=== PATIENT | male | born 1955 | race Caucasian/White ===

== ENCOUNTER → 2020-05-21 04:30 | Outpatient (CLI) | payer MEDICARE, SELFPAY ==
[2020-05-21 19:03] LABS: SARS-CoV-2 RNA PCR Negative
== END ==
PROVIDERS: PCP Internal Medicine Gastroenterology; Visit Provider Internal Medicine Gastroenterology
DX: Z01.812 Encounter for preprocedural laboratory examination (principal); Z20.822 Contact with and (suspected) exposure to COVID-19
CPT/HCPCS: C9803; U0003; U0005

== ENCOUNTER 2020-05-24 02:08 | Day surgery (SDC) | payer MEDICARE, SELFPAY ==
[2020-05-09 11:41] VITALS: BMI 31.9
[2020-05-24 09:17] VITALS: BP 158/89; PULSE 63; RESP 16; TEMP 36.7; O2SAT 96
--- NOTE | 2020-05-24 09:34 | WPDANESEPPF ---
Anes - Initial Pre Proc Eval Procedure: Operation Date: 05/24/20 10:00 Proposed Procedures p Screening Colonoscopy - Shon Espino MD Date/Time: 05/24/20 09:34 Surgeon: Shon Espino MD Pre Op Diagnosis: family hx colon ca, hx of colon polyps Patient Data Age: 64 Gender: M Height: 5 ft 10 in Weight: 103 kg Last Vital Signs Temp 36.7 C 05/24/20 09:17 Pulse 63 05/24/20 09:17 Resp 16 05/24/20 09:17 BP 158/89 H 05/24/20 09:17 Pulse Ox 96 05/24/20 09:17 Allergies Allergy/AdvReac Type Severity Reaction Status Date / Time No Known Allergies Allergy Unverified 03/21/11 12:40 Home Medications Medication Instructions Recorded Confirmed Type alprazolam 1 mg PO DAILY 05/09/20 05/09/20 History aspirin [Aspir-81] 81 mg PO DAILY 05/09/20 05/09/20 History baclofen 10 mg PO BID 05/09/20 05/09/20 History gabapentin 300 mg PO DAILY 05/09/20 05/09/20 History hydroxyzine HCl 25 mg PO DAILY 05/09/20 05/09/20 History meloxicam 15 mg PO DAILY 05/09/20 05/09/20 History pltzwehjpjzn-qst-rqyp-FA-vit K 1 tablet PO DAILY 05/09/20 05/09/20 History [Adults Multivitamin] omega-3 fatty acids-vitamin E 1 cap PO DAILY 05/09/20 05/09/20 History [Fish Oil] omeprazole 40 mg PO DAILY 05/09/20 05/09/20 History Patient hx anesthesia problems: none Family hx anesthesia problems: none PMFSH Past Medical History Medical History Anxiety Chronic pain syndrome GERD (gastroesophageal reflux disease) Tobacco abuse Social History Social History Smoking packs per day: 1 Smoking cigarettes per day: 20.0 Years smoked: 55 Smoking pack-years: 55.00 Smoking status: Current every day smoker Tobacco type: cigarettes Alcohol intake: current Drinks per week: 6 Substance use type: does not use Living arrangements: with family Spiritual care concerns: No Anes - Eval Final PreProcedure Day of Procedure 05/24/20 09:34 Patient weight: obese Heart: regular rate and rhythm Lungs: decreased breath sounds Airway: Mallampati scale class II Neurological: alert and oriented Last oral intake: >/= 8 hours ASA classification: III Emergent: no Anesthetic plan: proceed Anesthesia type and monitoring: general GIVS and standard monitoring Informed Consent: The patient's anesthetic plan and its attendant risks and benefits were discussed with the patient/family/POA. Questions were solicited and answers provided to the satisfaction of the patient/family/POA.
[2020-05-24] MEDS: LACTATED RINGERS 1,000 ML 150 ML IV CONT (09:36)
--- NOTE | 2020-05-24 09:39 | PM.HPGS ---
History of Present Illness History of Present Illness Consent: Risks, benefits, and alternatives have been discussed and questions answered. Patient agrees to proceed with procedure. Chief complaint: family hx colon ca, hx of colon polyps Narrative: Rafael Brambila is a 64 year old male here for colon cancer screening. His sister had colon cancer Review of Systems Review of Systems: All systems reviewed & are unremarkable except as noted in HPI and below PMFSH Past Medical History Medical History Anxiety Chronic pain syndrome GERD (gastroesophageal reflux disease) Tobacco abuse Social History Social History Smoking packs per day: 1 Smoking cigarettes per day: 20.0 Years smoked: 55 Smoking pack-years: 55.00 Smoking status: Current every day smoker Tobacco type: cigarettes Alcohol intake: current Drinks per week: 6 Substance use type: does not use Living arrangements: with family Spiritual care concerns: No Meds Home Medications and Allergies Home Medications Medication Instructions Recorded Confirmed Type alprazolam 1 mg PO DAILY 05/09/20 05/09/20 History aspirin [Aspir-81] 81 mg PO DAILY 05/09/20 05/09/20 History baclofen 10 mg PO BID 05/09/20 05/09/20 History gabapentin 300 mg PO DAILY 05/09/20 05/09/20 History hydroxyzine HCl 25 mg PO DAILY 05/09/20 05/09/20 History meloxicam 15 mg PO DAILY 05/09/20 05/09/20 History wggyzhnlwykg-kzo-dsba-FA-vit K 1 tablet PO DAILY 05/09/20 05/09/20 History [Adults Multivitamin] omega-3 fatty acids-vitamin E 1 cap PO DAILY 05/09/20 05/09/20 History [Fish Oil] omeprazole 40 mg PO DAILY 05/09/20 05/09/20 History Allergies Allergy/AdvReac Type Severity Reaction Status Date / Time No Known Allergies Allergy Unverified 03/21/11 12:40 Vital Signs Vital Signs - 24 hr 05/24/20 09:17 Temperature 36.7 C Pulse Rate 63 Respiratory Rate 16 Blood Pressure 158/89 H Pulse Oximetry 96 Exam Resp: Auscultation: clear to auscultation bilaterally Cardio: Rate: regular rate Rhythm: regular rhythm GI: GI Palp: Yes Soft to palpation and No Tenderness to palpation present (GI) Assessment and Plan Assessment and plan (1) Colon cancer screening: Code(s): Z12.11 - Encounter for screening for malignant neoplasm of colon Status: Acute Assessment and Plan: Colonoscopy with possible biopsy or polypectomy or cautery or injection of substances.
[2020-05-24 10:14] VITALS: BP 119/76; PULSE 61; RESP 21; O2SAT 96
[2020-05-24 10:24] VITALS: BP 115/74; PULSE 60; RESP 18; O2SAT 96
[2020-05-24 10:34] VITALS: BP 128/85; PULSE 62; RESP 16; O2SAT 96
== END 2020-05-24 10:58 | disposition home or self-care (01) ==
PROVIDERS: PCP Emergency Medicine; Visit Provider Internal Medicine Gastroenterology
PROC: 0DJD8ZZ Inspection of Lower Intestinal Tract, Via Natural or Artificial Opening Endoscopic (ICD-10-PCS; CPT 45378; principal; 2020-05-24 10:00)
DX: Z12.11 Encounter for screening for malignant neoplasm of colon (principal); D12.8 Benign neoplasm of rectum; D12.2 Benign neoplasm of ascending colon; Z98.0 Intestinal bypass and anastomosis status; Z80.0 Family history of malignant neoplasm of digestive organs; Z79.82 Long term (current) use of aspirin; F41.9 Anxiety disorder, unspecified; K21.9 Gastro-esophageal reflux disease without esophagitis; E66.9 Obesity, unspecified; Z68.32 Body mass index [BMI] 32.0-32.9, adult; F17.210 Nicotine dependence, cigarettes, uncomplicated
CPT/HCPCS: 45385; 45381; 88305; C9803; J2704; J7120; U0003; U0005

== ENCOUNTER 2024-03-29 14:31 | Outpatient (CLI) | payer MEDICARE, SELFPAY ==
--- NOTE | ~2024-03-29 | MR_ITS ---
EXAMINATION: MR abdomen wo/w con DATE: 03/29/2024 15:49 INDICATION: Neoplasm of right kidney. TECHNIQUE: Magnetic resonance imaging (MRI) of the abdomen was performed without and with 19 mL Multi Treasure intravenous contrast. COMPARISON: None. FINDINGS: The liver, gallbladder, spleen, pancreas, and adrenal glands are normal. There are cysts and hemorrha gic cysts in the kidneys measuring up to 3.6 cm on the left. There are no dilated loops of bowel. The re are no pathologically enlarged lymph nodes. There is no free intraperitoneal fluid. IMPRESSION: 1. Benign cysts in the kidneys. Reviewed, dictated and finalized at location A. EYBALL COMMENTATOR
--- OUTSIDE RECORDS SUMMARY | 2024-03-29 14:37 | XMS_ITS | Encounter Summary ---
Author Organization [facility] Address [address] [place] [address] Care Team Providers Care Chemistry Associate Name Role Phone Alvaro Moon MD Primary Care Provider [phone] Encounter Details Date Type Department Care Team (Late st Contact Info) Description 07/28/2022 [facility] Message Enc [facility] ield [address] [place] [phone] Mychart, [facility] Provider lab results Social History Tobacco Use Types Packs/Day Years Used Date Smoking Tobacco: Former Cigarettes 1 55.4 0 05/09/1966 - 09/15/2021 Smokeless Tobacco: Never Alcohol Use Standard Drinks/Week Comments Yes 16.7 (1 standard drink = 0.6 oz pure alcohol) PHQ-2 Answer Date Recorded PHQ-2 Score - If the patient scores above 3, please move on to questions 3-9 0 07/08/2021 Education Answer Date Recorded What is the highest level of school you have completed or the highest degree you have received? 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 No / Unsure 07/03/2022 11:39 AM CDT documented as of this encounter Plan of Treatment Upcoming Encounters Date Type Department Care Team (Late st Contact Info) Description 04/18/2024 1:15 PM PASTE PLANT SUPERVISOR Appointment [facility] [address] [facility] [place] [address] Rj Esposito MD 3 [facility] [address] [place] [address] 05/10/2024 1:00 PM CDT Office Visit [facility] - [address] [place] [address] Rj Esposito MD 3 [facility] [address] [place] [address] documented as of this encounter Visit Diagnoses Not on filedocumented in this encounter Additional Health Concerns Assessment Noted Time PHQ-9 Depression Total Score: 0 05/10/19 11:25 AM CDT documented as of this encounter Care Teams Chemistry Associate Relationship Specialty Start Date End Date Alvaro Moon MD [address] [place] [id number] PCP - General FAMILY PRACTICE 05/06/21 documented as of this encounter
--- OUTSIDE RECORDS SUMMARY | 2024-03-29 14:37 | XMS_ITS | Data Portability ---
Author Organization [facility], [address] [facility] Address [address] [place] [address] Care Team Providers Care Timber Robber Name Role Phone LALITA DANIEL Primary Care Provider [phone] Assessment Encounter Date Assessment Date Assessment LastModified by Organization Details LastModified Time 07/05/2023 07/05/2023 The patient doiиван g very well after his right shoulder reverse arthroplasty. He can use the right arm and shoulder as tolerated. He will be seen 1 year after his surgical procedure on the right shoulder and have right shoulder radiographs at that visit. Risks, benefits and possible complication of corticosteroid injection were discussed. The skin over the left thumb carpometacarpal joint area and radial aspect of the left wrist was cleaned with alcohol and Betadine and the left thumb carpometacarpal joint was injected with 3 mg of betamethasone and 1/2 cc of bupivacaine and the left wrist STT joint was injected with 6 mg of betamethasone and 1 cc of bupivacaine. The patient tolerated the injections well. mgreatting Not available 07/09/2023 04:59:08 Plan of Treatment Reminders Order Date Submit Date Provider Last Modified By Organization Details Last Modified Time Details Appointments Establis [facility] Patient 15.EST 2024 01:00P M Dr. dIris Parker Not available Not available Not available Lab None recorded . Referral None recorded . Procedures None recorded . Surgeries None recorded . Imaging None recorded . Medication Orders None recorded . Patient TargetsNo targets recorded. Patient InstructionsNo instructions recorded. Reason for Referral None Reported. Results Created Date Observation Date Name Description Value Unit Range Abnormal Flag Note LastModifiedBy Organization Detail LastModifiedTime 09/30/19 24 06/08/2022 imagi ng/di agnos tic resul t No observ ation record ed. Not Available 09/30/2023 05:19:22 09/30/1906/15/2022 imagi ng/di agnos tic resul t No observ ation record ed. Not Available 09/30/2023 05:19:24 12/13/1903/22/2023 imagi ng/di agnos tic resul t No observ ation record ed. [email or web address] Not Available 22:59:48 Result Notes None recorded. 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 4 04:59:32 Osteoarthri tis of joint of left wrist 6465397089784 06 Active 2023 Idris Parker MD [address] , [place], [address], [facility] 4 04:59:43 Problem Notes None recorded. Procedures Surgical History Date Name Laterality Status Provider Name and Address Organization Details Recorded Time Colonoscopy with biopsy completed Not Available Health Note 06/28/2023 14:16:11 Total hip arthroplasty completed Not Available Health Note 06/28/2023 14:16:11 Total knee arthroplasty completed Not Available Health Note 06/28/2023 14:16:11 Imaging Results Imaging Date Name Status [facility]Modified [facility] Details LastModified Time 06/08/2022 imaging/diag nostic result completed Information not available 09/30/2023 05:19:22 06/15/2022 imaging/diag nostic result completed Information not available 09/30/2023 05:19:24 03/22/2023 imaging/diag nostic result completed [email or web address] Information not available 12/13/2023 22:59:48 Procedure Notes None recorded. Medical Equipment None Reported. Allergies Allergen ID Allergen Name Allergen Category Reaction Reaction Severity Criticality Documentation Date Start Date Code Code System Note Provider Name and Address Organization Details Recorded Time 0386631 honey bee venom medicatio n hives itching swelling Not available Not available Not available Not available 06/28/2023 27471 7 RxNorm Not Available Not Available Not Available 1224381 tramadol hydrochlo ride medicatio n headache Not available Not available 11/24/20232022 41683 RxNorm React ion: Heada guru; Not Available Not Available Not Available Medications Name Sig Start Date Stop Date Status Note LastModified by Organization Details LastModified Time azithromycin 250 mg tablet TAKE 2 TABLETS BY MOUTH ON DAY 1, AND THEN TAKE 1 TABLET BY MOUTH ONCE A DAY ON DAY 2 THROUGH DAY 5 active Not Available Not Available No t Available alprazolam 1 mg tablet TAKE 1/2 TO 1 (ONE-HALF TO ONE) TABLET BY MOUTH EVERY 8 HOURS NEEDED FOR ANXIETY active Not Available Not Available No t Available hydrocodone 5 mg-acetaminop hen 325 mg tablet TAKE 1 TO 2 TABLETS BY MOUTH EVERY 6 HOURS NEEDED FOR PAIN active Not Available Not Available No t Available meloxicam 15 mg tablet TAKE 1 TABLET BY MOUTH ONCE DAILY active Not Available Not Available No t Available hydrocodone 10 mg-acetaminop hen 325 mg tablet TAKE 1 TO 2 TABLETS BY MOUTH EVERY 6 HOURS NEEDED FOR PAIN active Not Available Not Available No t Available omeprazole 40 mg capsule,delay ed release TAKE 1 CAPSULE BY MOUTH ONCE DAILY active Not Available Not Available No t Available tramadol 50 mg tablet TAKE 1 TO 2 TABLETS BY MOUTH EVERY 6 HOURS NEEDED FOR PAIN active Not Available Not Available No t Available carvedilol 3.125 mg tablet TAKE 1 TABLET BY MOUTH TWICE DAILY active Not Available Not Available No t Available dicyclomine 20 mg tablet TAKE 1 TABLET BY MOUTH 4 TIMES DAILY NEEDED FOR ABDOMINAL CRAMPING active Not Available Not Available No t Available baclofen 10 mg tablet TAKE 1 TABLET BY MOUTH TWICE DAILY active Not Available Not Available No t Available losartan 25 mg tablet TAKE 1 TABLET BY MOUTH ONCE DAILY active Not Available Not Available No t Available docusate sodium 100 mg capsule TAKE ONE CAPSULE BY MOUTH TWICE DAILY active Not Available Not Available No t Available rosuvastatin 20 mg tablet TAKE 1 TABLET BY MOUTH NIGHTLY AT BEDTIME active Not Available Not Available No t Available Vitals None Recorded Social History Question Answer Notes LastModified by Organizat ion Details LastModified Time Do You Have An Advance Directive? No [email or web address] Information not available 06/28/2023 What Is Your Level Of Alcohol Consumption? Occasional [email or web address] Information not available 06/28/2023 How Many Times Per Week Do You Consume Alcohol? 1-2 Times Per Week [email or web address] Information not available 06/28/2023 What Is Your Level Of Caffeine Consumption? None [email or web address] Information not available 06/28/2023 Are You Currently Employed? 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 3-4 Times Per Week [email or web address] Information not available 06/28/2023 How Many Packs Per Day (PPD)? 1/2 Pack Per Day [email or web address] Information not available 06/28/2023 How Long Have You Smoked? 50yrs [email or web address] Information not available 06/28/2023 Do You Have A Medical Power Of Geological Science Teacher? No [email or web address] Information not available 06/28/2023 What Was The Date Of Your Most Recent Tobacco Screening? 07/05/2023 [email or web address] Information not available 06/28/2023 What Is Your Relationship Status? [email or web address] Information not available 06/28/2023 Do You Use Any Illicit Or Recreational Drugs? No [email or web address] Information not available 06/28/2023 Sex: Unknown Functional Status Question Answer Note LastModified by Organization D etails LastModified Time What is your exercise level? Moderate [email or web address] Information not available 06/28/2023 Mental Status None recorded. Family History Relationship Description Onset Age of this Age Resolved Age Notes LastModified by Organization Details LastModified Time Mother Arthritis [email or web address] Not available 06/28/2023 14:16:09 Father Arthritis [email or web address] Not available 06/28/2023 14:16:09 Sister Arthritis [email or web address] Not available 06/28/2023 14:16:09 Brother Arthritis [email or web address] Not availabl e 06/28/2023 14:16:09 Maternal Grandfather Arthritis [email or web address] Not available 06/15 14:16:09 Paternal Grandfather Arthritis [email or web address] Not available 06/15 14:16:09 Maternal Grandmother Arthritis [email or web address] Not available 06/15 14:16:10 Paternal Grandmother Arthritis [email or web address] Not available 06/15 14:16:10 Medical History Condition Response Anxiety Disorder N Diabetes N Bleeding Disorder N Attention-deficit Hyperactivity Disorder N High Blood Pressure N Arthritis Y Hyperlipidemia N Cancer N Thyroid Problems N Stroke N Asthma N Depression N COPD N Seizures N Anemia N Heart Disease Y Fibromyalgia N Osteoporosis N Kidney Disease N Past Encounters Encounter ID Performer Location Encounter Start Date Encounter Closed Date Diagnosis/Indication Diagnosis SNOMED-CT Code Diagnosis ICD10 Code Diagnosis Note [id number] Idris Parker MD [facility] [address] [place] [address] 07/05/2023 13:06:52 07/13/2023 20:35:45 History of reverse prosthetic total arthroplasty of right shoulder 1640200637 6736305 Z96.611 Arthritis of first carpometacarpal joint of left hand 4341156749 247781 M13.842 Osteoarthr itis of joint of left wrist 6173523992 06145 M19.032 Health Concerns Section Related Observation LastModified by Organization Detai ls LastModified Time None Recorded Concern Status LastModified by Organization Details LastModified Time None Recorded Advance Directives Directive N: Payers Encounter Date Sequence Insurance Name Policy Number Policy Guerrero Covered Member ID Guerrero Member ID Guarantor Name 07/05/2023 1 [employer] (MEDICARE REPLACEMENT HMO) [id number] Rafael E Kosta [id number] Rafael Brambila Notes Date Note Type Note Provider Name and Address Organization Details Recorded Time 07/05/2023 text/html Rafael Brambilais a 67 year oldmalepresenting for care. Rafael returns for follow-up about 6 months after right shoulder reverse arthroplasty. He currently feels he is doing very with his shoulder replacement. He feels his range of motion and strength are good and his pain is markedly improved over his preoperative status. He is very pleased with the results. He is having pain in the left wrist STT joint and thumb CMC joint area and has received injections for those areas in the past and would like repeat injections today. He gets pain in the left wrist and base of the left thumb with lifting, gripping and grasping, pinching and pushing and pulling activities. Idris Parker MD [address] [facility], [place], [address], [facility] 07/09/2023 05:01:14
--- OUTSIDE RECORDS SUMMARY | 2024-03-29 14:37 | XMS_ITS | Encounter Summary ---
Author Organization [facility] Address [address] [place] [address] Care Team Providers Care Science Interpreter Name Role Phone Alvaro Moon MD Primary Care Provider [phone] Encounter Details Date Type Department Care Team (Late Contact Info) Description 10/23/2021 [facility] [address] Heath Monique [place] Social History Tobacco Use Types Packs/Day Years Used Date Smoking Tobacco: Some Days Cigarettes 1 57.9 Started: [birth year]/09/1967 Smokeless Tobacco: Never Alcohol Use Standard Drinks/Week [...] CDT Gender Identity Male 03/24/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 No / Unsure 10/22/2021 2:50 PM CDT documented as of this encounter Plan of Treatment Upcoming Encounters Date Type Department Care Team (Late st Contact Info) Description 04/18/2024 1:15 PM ELECTRONIC SCALE TESTER Appointment [facility] [address] [facility] [place] [address] Rj Esposito MD 3 [facility] [address] [place] [address] 05/10/2024 1:00 PM CDT Office Visit [facility] - [place] [address] [facility] [place] [address] Rj Esposito MD [address] [facility] [address] [place] [address] documented as of this encounter Procedures Procedure Name Priority Date/Time Associated Diagnosis Comments CBC (OUTSIDE LAB) Routine 01/29/2021 COMPREHENSIVE METABOLIC PANEL Routine 01/29/2021 LIPID PANEL Routine 01/29/2021 HEMOGLOBIN, GLYCOSYLATED Routine 01/29/2021 THYROID STIM HORMONE TSH Routine 01/29/2021 documented in this encounter Results * HEMOGLOBIN, GLYCOSYLATED (01/29/2021) HGB A1C 5.5 % 01/29/2021 [facility] Final Result * THYROID STIM HORMONE, TSH (01/29/2021) TSH 0.992 01/29/2021 us [facility] Final Result * LIPID PANEL (01/29/2021) CHOLESTEROL 181 HDL 58 TRIGLYCERIDES 135 LDL (CALCULATED) 96 01/29/2021 us [facility] Final Result * (ABNORMAL) COMPREHENSIVE METABOLIC PANEL (01/29/2021) SODIUM S/P/B 145 POTASSIUM S/P/B 4.2 CO2 28.4 CHLORIDE S/P/B 109 GLUCOSE 111 mg/dL CALCIUM S/P/B 8.9 BUN 16 CREATININE S/P/B 0.7 0.7 - 1.3 EGFR NON-AFR. AMER. >60 <=90 ALKALINE PHOSPHATASE S/P/B 109 ALT 27 AST 18 BILIRUBIN TOTAL S/P/B 0.5 ALBUMIN S/P/B 3.4(A) 3.5 - 5.0 TOTAL PROTEIN S/P/B 6.7 01/29/2021 [facility] Final Result * CBC (OUTSIDE LAB) (01/29/2021) WBC 6.2 HGB 14.5 HCT 43.9 PLT 126 01/29/2021 us [facility]-OUTSIDE/ABSTRACTED Edite d Result - Final documented in this encounter Visit Diagnoses Not on filedocumented in this encounter Additional Health Concerns Assessment Noted Time PHQ-9 Depression Total Score: 0 05/10/19 22 11:25 AM CDT documented as of this encounter Care Teams Science Interpreter Relationship Specialty Start Date End Date Alvaro Moon MD [address] [place] [address] PCP - General FAMILY PRACTICE 05/06/21 documented as of this encounter
--- OUTSIDE RECORDS SUMMARY | 2024-03-29 14:37 | XMS_ITS | Encounter Summary ---
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 Sexual Orientation Straight 06/26/2021 9: 32 AM CDT 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 Not on file Not on file documented as of this encounter Plan of Treatment Upcoming Encounters Date Type Department Care Team (Late st Contact Info) Description 04/18/2024 1:15 PM ASSEMBLER MOLDED FRAMES Appointment [facility] [address] [facility] [place] [id number] Rj Esposito MD 3 [facility] [address] [place] [address] 05/10/2024 1:00 PM CDT Office Visit [facility] [address] [place] [address] Rj Esposito MD 3 [facility] [address] [place] [address] documented as of this encounter Visit Diagnoses Not on filedocumented in this encounter Additional Health Concerns Assessment Noted Time PHQ-9 Depression Total Score: 0 05/10/19 22 11:25 AM CDT documented as of this encounter Care Teams Directory Carrier Relationship Specialty Start Date End Date Alvaro Moon MD [address] [place] [address] PCP - General FAMILY PRACTICE 05/06/21 documented as of this encounter
--- OUTSIDE RECORDS SUMMARY | 2024-03-29 14:37 | XMS_ITS | Clinical Summary ---
Author Organization [facility] Address [facility] access [facility] [place] [address] Care Team Providers Care Operator Vacuum Name Role Phone Lalita Daniel MD Primary Care Provider [phone] Allergies Active Allergy Reactions Criticality Noted Date Comments Bee Venom Hives High 05/09/2021 The bigger the bee /wasp/hornet the worse the reaction, edema, eyes swell shut, low blood pressure Medications ALPRAZolam 1 MG tablet Take 1 tablet (1 mg total) by mouth 2 (two) times daily as needed. Active baclofen 10 MG tablet Take 1 tablet (10 mg total) by mouth 2 (two) times daily. 2 Active omeprazole 40 MG capsule Take 1 capsule (40 mg total) by mouth daily. Active Multiple Vitamins-Minera ls (MULTI COMPLETE) Cap Take by mouth daily. Active diclofenac sodium (VOLTAREN) 1 % gel Apply 2 g topically 4 (four) times daily as needed. Active HYDROcodone-brennon taminophen (NORCO) 10-325 MG tablet Take 1 tablet by mouth every 6 (six) hours as needed for Pain. 4 Active ibuprofen (MOTRIN) 200 MG tablet Take 1 tablet (200 mg total) by mouth every 6 (six) hours as needed for Pain. Active aspirin EC (ECOTRIN) 81 MG tablet Take 1 tablet (81 mg total) by mouth daily. 30 tablet 11 4 Active carvedilol (COREG) 3.125 MG tablet Take 1 tablet (3.125 mg total) by mouth 2 (two) times daily. 60 tablet 11 4 Active losartan (COZAAR) 25 MG tablet Take 0.5 tablets (12.5 mg total) by mouth daily. 45 tablet 1 4 Active Active Problems Problem Noted Date Diagnosed Date Primary hypertension 04/19/2023 Mixed hyperlipidemia 04/15/2022 Assessment & Plan (04/15/2022 2:03 PM INVAS TECH): Light of the patient's known atherosclerotic and aneurysmal disease his LDL target is a value of 70 mg/dL or less preferably 50 mg/dL. I have increased his rosuvastatin to 20 mg daily. We will repeat his lipid profile in 2 months along with liver function tests. Ascending aortic aneurysm 04/14/2022 Assessment & Plan (04/15/2022 2:01 PM INVAS TECH): Patient will continue with his beta-patty and secondary risk factor modification as management of his ascending aorta and aortic atherosclerosis. Former smoker 04/14/2022 Assessment & Plan (04/15/2022 2:02 PM INVAS TECH): Patient continues to be successful with smoking cessation, I commended him on his smoking cessation efforts. Dermoid cyst of skin of back 05/21/2021 Resolved Problems Problem Noted Date Diagnosed Date Resolved Date Calcific coronary arteriosclerosis 04/14/2022 04/19/2023 Assessment & Plan (04/15/2022 2:02 PM INVAS TECH): The patient remains asymptomatic from any symptoms of angina or heart failure. He will continue with aggressive secondary risk factor modification. Thoracic aortic atherosclerosis 04/14/2022 04/19/2023 Encounters Date Type Department Care Team Description 12/30/2023 [facility]phone [facility] [address] [place] [address] Dionicio Fierro MD Refill Request from Last 3 Months Family History Medical History Relation Comments SC Brother SC Father caused car wreck Parkinson's Disease Mother Relation Status Comments Brother Father Mother Social History Tobacco Use Types Packs/Day Years Used Date Smoking Tobacco: Every Day Cigarettes 1 56.2 Started: 05/09/1966; Last attempted to quit: 07/16/2022 Smokeless Tobacco: Never Tobacco Cessation:Ready to Q uit: Not Asked; Counseling Given: Not Answered Alcohol Use Standard Drinks/Week Comments Not Currently 0 (1 standard drink = 0.6 oz pur e alcohol) 5-6 drinks/week PHQ-2 Answer Date Recorded PHQ-2 Score - [...] CDT Gender Identity Male 03/24/2021 11:44 AM INVAS TECH Sexual Orientation Straight 06/26/2021 9: 32 AM CDT 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 Not on file Not on file Not on file Last Filed Vital Signs Vital Sign Reading Time Taken Comments Blood Pressure 106/68 05/14/2023 1:13 PM CDT Pulse 71 05/14/2023 12:54 PM CDT Temperature 36.3 C (97.4 F) 12/10/2021 5:45 PM CDT Respiratory Rate 16 05/14/2023 12:54 PM CDT Oxygen Saturation 96% 05/14/2023 12:54 PM CDT Inhaled Oxygen Concentration - - Weight 95.9 kg (211 lb 6.4 oz) 05/14/2023 12:54 PM CDT Height 176.5 cm (5' 9.5 ) 04/19/2023 10:07 AM CS T Body Mass Index 30.77 04/19/2023 10:07 AM INVAS TECH Plan of Treatment Upcoming Encounters Date Type Department Care Team (Late st Contact Info) Description 04/18/2024 1:15 PM INVAS TECH Appointment [facility] [address] [place] [address] Katherin Brown MD [address] [address] 05/10/2024 1:00 PM CDT Office Visit [facility] [place] [address] [place] [address] Katherin Brown MD [address] [address] Health Maintenance Due Date Last Done Comments Colorectal Cancer Screening Colonoscopy (10 Years) 1954 Hepatitis C 1972 DTaP, Tdap and Td Vaccines (1 - Tdap) 1973 Zoster Vaccines (1 of 2) 2004 Annual Medicare Wellness Visit 10/30/2019 Pneumococcal Vaccine: 65+ Years (3 of 3 - PPSV23 or PCV20) 10/30/2019 10/25/2014, 10/16/2008 COVID-19 Vaccine (4 - season) 2023 02/19/2021, 05/04/2020, 04/15/2020 Influenza Adult (#1) 2023 12/25/2020, 12/25/2019, 01/17/2018 PHQ-2 (Physician [place]) 02/16/2024 Lung Cancer Screening 04/14/2024 04/14/2023 , 04/08/2022, 09/17/2021 RSV Immunization or 60+ Years (1 - 1-dose 75+ series) 2029 AAA SCREENING Completed 12/08/2023, 05/17, 10/11/2022, Additional history exists Meningococcal B Vaccine Aged Out No l onger eligible based on patient's age to complete this topic Meningococcal Vaccine Aged Out No huang leslie eligible based on patient's age to complete this topic RSV Immunizations Under 20 Months Aged Out No longer eligible based on patient's age to complete this topic Procedures Procedure Name Priority Date/Time Associated Diagnosis Comments CT ABD+PEL WWO CON Routine 12/08/2023 1: 25 PM CDT Complex renal cyst CT LUNG SCREENING Routine 04/14/2023 1:0 2 PM INVAS TECH Cigarette nicotine dependence with other nicotine-induced disorder from Last 3 Months or Most Recently Relevant to Health Maintenance Results * CT ABD+PEL WWO CON (12/08/2023 1:25 PM CDT) Anatomical Region Laterality Modality Abdomen Computed Tomogra phy 12/08/2023 1:46 PM CDT Impressions 12/08/2023 1:53 PM CDT IMPRESSION: 1. The complex right-sided cyst appears stable, however, the peripheral enhancement remains mildly concerning. Follow-up in one year is recommended to ensure a benign etiology Ordered By: LALITA DANIEL Interpreted By: David Ocampo MD, 12/08/2023 1:46 PM Narrative 12/08/2023 1:53 PM [address]T [address] [place] [address] CT ABDOMEN AND PELVIS WITHOUT AND WITH CONTRAST Clinical history: Complex renal cyst. Technique: Dynamic helical images of the abdomen and pelvis were obtained. The patient received 100 mL of Isovue 370 nonionic intravenous contrast through an IV in the right antecubital fossa. A dose lowering technique was used for this procedure, which may include, but is not limited to, dose reduction technique, automated exposure control, the use of iterative reconstruction, and ALARA (As Low As Reasonably Achievable) / Image Gently techniques. Comparison: June 07, 2023. FINDINGS: Images of the lower thorax demonstrate the visualized portion of the heart to appear normal. The lung bases are clear. Images of the abdomen demonstrate the overall size and morphology of the liver to be within normal limits. No hepatic lesions are observed. No ascites is seen. The gallbladder is present and normally distended. No stones are observed within its lumen and there is no evidence of cholecystitis or biliary obstruction. The pancreas, spleen, and adrenal glands appear grossly normal. The kidneys remain stable both in size and appearance. The septated cyst on the right continues to exhibit minimal contrast enhancement, however, this is likely within the septation and not within the cystic component. The overall size and morphology has not changed since the previous exam. The stability implies a benign etiology, however, follow-up in one year is recommended to be confident.. Images of the pelvis demonstrate the urinary bladder to appear normal. The prostate is normal in size. The stomach and small bowel have a normal appearance throughout. The terminal ileum appears normal. The colon is unchanged from previous Procedure Note David Ocampo MD - 12/08/[address] [place] [address] CT ABDOMEN AND PELVIS WITHOUT AND WITH CONTRAST Clinical history: Complex renal cyst. Technique: Dynamic helical images of the abdomen and pelvis were obtained.The patient received 100 mL of Isovue 370 nonionic intravenous contrastthrough an IV in the right antecubital fossa. A dose lowering techniquewas used for this procedure, which may include, but is not limited to,dose reduction technique, automated exposure control, the use of iterativereconstruction, and ALARA (As Low As Reasonably Achievable) / Image Gentlytechniques. Comparison: June 07, 2023. FINDINGS: Images of the lower thorax demonstrate the visualized portion of the heartto appear normal. The lung bases are clear. Images of the abdomen demonstrate the overall size and morphology of theliver to be within normal limits. No hepatic lesions are observed. Noascites is seen. The gallbladder is present and normally distended. Nostones are observed within its lumen and there is no evidence ofcholecystitis or biliary obstruction. The pancreas, spleen, and adrenalglands appear grossly normal. The kidneys remain stable both in size and appearance. The septated cyston the right continues to exhibit minimal contrast enhancement, however,this is likely within the septation and not within the cystic component.The overall size and morphology has not changed since the previous exam.The stability implies a benign etiology, however, follow-up in one year isrecommended to be confident.. Images of the pelvis demonstrate the urinary bladder to appear normal. Theprostate is normal in size. The stomach and small bowel have a normal appearance throughout. Theterminal ileum appears normal. The colon is unchanged from previous IMPRESSION: 1. The complex right-sided cyst appears stable, however, the peripheralenhancement remains mildly concerning. Follow-up in one year isrecommended to ensure a benign etiology Ordered By: LALITA DANIEL Interpreted By: David Ocampo MD, 12/08/2023 1:46 PM us Lalita Daniel MD CT Final Result * CT LUNG SCREENING (04/14/2023 1:02 PM INVAS TECH) Anatomical Region Laterality Modality Chest Computed Tomogra phy 04/24/2023 8:21 AM INVAS TECH Impressions 04/24/2023 8:25 AM INVAS TECH IMPRESSION: 1. LUNG-RADS category 2: Negative. Lung nodule(s) with benign appearance or behavior. 2. LUNG-RADS category S: Negative, no new/unknown potentially significant incidental findings requiring urgent additional evaluation. 3. Other incidental findings as above. RECOMMENDATIONS: Continued routine annual LDCT lung screening. Suggest next exam on or around March 2024 Thank you for choosing the [facility] Lung Screening Program. Ordered By: KATHERIN BROWN Interpreted By: David Glass MD, 04/24/2023 8:21 AM Narrative 04/24/2023 8:25 AM INVAS TECH EXAM: LUNG SCREENING LOW-DOSE CT THORAX WITHOUT CONTRAST DATE: 04/06/2023 HISTORY: Asymptomatic patient with history of smoking meeting CMS high-risk criteria for lung screening. * 67 years * 30 pack years or greater * Current smoker or have quit smoking within the last 15 years COMPARISON: 04/08/2022 TECHNIQUE: Noncontrast, helical, low-dose CT (LDCT) chest per standard departmental protocol. A dose lowering technique was used for this procedure, which may include, but is not limited to, dose reduction technique, automated exposure control, the use of iterative reconstruction, and ALARA (As Low As Reasonably Achievable) / Image Gently techniques. FINDINGS: Lung Screening Specific (LUNG-RADS): There are multifocal sub-6 mm pulmonary nodules which are unchanged from the prior examination. These are marked with arrows on lung window images for ease of identification. No new or enlarging pulmonary nodule. Potentially Significant Incidentals (LUNG-RADS category S): None Pulmonary Incidentals: Intrafissural lymph nodes. Other Incidentals: Thoracic aortic ectasia measuring up to 4.6 cm though suboptimally evaluated on this study. Coronary artery calcification. Poor visualization of the patient's known left superior pole renal cyst. Irregular ossification involving the left subscapular recess or subscapularis muscle, unchanged from the prior exam. Procedure Note David Glass MD - 04/24/2023 EXAM: LUNG SCREENING LOW-DOSE CT THORAX WITHOUT CONTRAST DATE: 04/06/2023 HISTORY: Asymptomatic patient with history of smoking meeting CMShigh-risk criteria for lung screening. * 67 years * 30 pack years or greater * Current smoker or have quit smoking within the last 15 years COMPARISON: 04/08/2022 TECHNIQUE: Noncontrast, helical, low-dose CT (LDCT) chest per standarddepartmental protocol. A dose lowering technique was used for thisprocedure, which may include, but is not limited to, dose reductiontechnique, automated exposure control, the use of iterativereconstruction, and ALARA (As Low As Reasonably Achievable) / Image Gentlytechniques. FINDINGS: Lung Screening Specific (LUNG-RADS): There are multifocal sub-6 mmpulmonary nodules which are unchanged from the prior examination. Theseare marked with arrows on lung window images for ease of identification.No new or enlarging pulmonary nodule. Potentially Significant Incidentals (LUNG-RADS category S): None Pulmonary Incidentals: Intrafissural lymph nodes. Other Incidentals: Thoracic aortic ectasia measuring up to 4.6 cm thoughsuboptimally evaluated on this study. Coronary artery calcification. Poorvisualization of the patient's known left superior pole renal cyst.Irregular ossification involving the left subscapular recess orsubscapularis muscle, unchanged from the prior exam. IMPRESSION: 1. LUNG-RADS category 2: Negative. Lung nodule(s) with benign appearanceor behavior. 2. LUNG-RADS category S: Negative, no new/unknown potentially significantincidental findings requiring urgent additional evaluation. 3. Other incidental findings as above. RECOMMENDATIONS: Continued routine annual LDCT lung screening. Suggestnext exam on or around March 2024 Thank you for choosing the [facility]ening[facility]. Ordered By: KATHERIN BROWN Interpreted By: David Glass MD, 04/24/2023 8:21 AM Katherin Brown MD CT Final Result from Last 3 Months or Most Recently Relevant to Health Maintenance Insurance [facility] [place] [address] Care Teams Operator Vacuum Relationship Specialty Start Date End Date Lalita Daniel MD [address] [place] [address] PCP - General FAMILY PRACTICE 05/06/21
== END 2024-03-29 14:32 | disposition home or self-care (01) ==
PROVIDERS: PCP Emergency Medicine; Visit Provider Urology
DX: D41.01 Neoplasm of uncertain behavior of right kidney (principal); N28.1 Cyst of kidney, acquired
CPT/HCPCS: 74183; A9577